=== PATIENT | female | born 1995 | race Caucasian/White ===

== ENCOUNTER 2023-07-02 11:24 | Emergency (ER) | payer BC ==
[~2023-07-02 11:24] MED LIST: Iopamidol 370 76% 100 ML VIAL ONE
[2023-07-02 12:41] LABS: #Basophils 0.07 10x3/uL (0.0-0.2); #Eosinphils 0.15 10x3/uL (0.0-0.5); #Monocytes 0.99 10x3/uL (0.0-1.1); %Basophils 0.5 % (0.0-2.0); %Lymphocytes 9.1 % (18.0-47.0); %Monocytes 6.4 % (0.0-10.0); %Neutrophils 81.8 % (40.0-75.0); Hematocrit 34.3 % (34.9-44.5); Hemoglobin 11.8 g/dL (12.0-15.5); Mean Corpuscular HGB CONC 34.4 g/dL (32.0-36.0); Mean Corpuscular Hemoglobin 31.6 pg (27.0-33.0); Mean Corpuscular Volume 91.7 fl (81.6-98.3); Platelet Count 199 10x3/uL (150-450); RBC Distribution Width 12.9 % (11.5-14.5); Red Blood Cell (RBC) Count 3.74 10x6/uL (3.90-5.03); White Blood Cell (WBC) Count 15.4 10x3/uL (3.5-10.5)
[2023-07-02 12:50] LABS: ALT (SGPT) 15 U/L (8-55); AST (SGOT) 23 U/L (5-34); Albumin 3.1 g/dL (3.5-5.0); Alkaline Phosphatase 63 U/L (40-110); Anion Gap 14 mmol/L (10-20); BUN (Urea Nitrogen) 9 mg/dL (7.0-18.7); Bilirubin, Total 0.5 mg/dL (0.2-1.2); Calc. Creatinine Clearance 0 mL/min (70-130); Calcium 9.1 mg/dL (7.8-10.44); Carbon Dioxide 17 mmol/L (22-29); Chloride 107 mmol/L (98-107); Estimated GFR 112; Globulin 3.8 g/dL (2.4-3.5); Glucose 93 mg/dL (70-105); Potassium 4.5 mmol/L (3.5-5.1); Protein, Total 6.9 g/dL (6.0-8.3); Sodium 133 mmol/L (136-145)
[2023-07-02 12:57] LABS: Magnesium 1.7 mg/dL (1.6-2.6)
[2023-07-02 13:11] LABS: Free T4 (Free Thyroxine) 0.7 ng/dL (0.70-1.48); Thyroid Stimulating Hormone 0.7064 uIU/mL (0.35-4.94)
[2023-07-02 13:24] LABS: Troponin I Less than 0.010 ng/mL (< 0.028)
[2023-07-02 13:57] LABS: Bilirubin Neg (Negative); Blood, Urine Negative (Negative); Glucose, Urine (Dipstick) Normal (Negative); Ketone, Urine Negative (Negative); Leukocyte 25 (Negative); Nitrite Negative (Negative); Protein, Urine (Dipstick) Negative (Neg-Trace); Specific Gravity, Urine 1.005 (1.005-1.030); Urobilinogen Normal mg/dL (Less than 2)
[2023-07-02 14:05] LABS: Clarity Clear (Clear)
[2023-07-02 14:07] LABS: Bacteria/HPF 1+ HPF (None Seen); CAUTI Indications for Culture Pregnancy; RBC/HPF None Seen HPF (0-3); WBC/HPF 0-3 HPF (0-3)
[2023-07-02 14:08] LABS: Urine Culture Reflex Yes Yes
== END 2023-07-02 15:49 | disposition home or self-care (01) ==
LOC: CSHERS 11:24
DX: O99.891 Other specified diseases and conditions complicating pregnancy (principal); R55 Syncope and collapse; R00.0 Tachycardia, unspecified; Z3A.26 26 weeks gestation of pregnancy
CPT/HCPCS: 71275; 80053; 81001; 83735; 83880; 84439; 84443; 84481; 84484; 85025; 85379; 87077; 87086; 93005; 96360; 96361; Q9967

== ENCOUNTER 2023-09-14 11:06 | Day surgery (SDC) | payer BC ==
[2023-09-14 11:26] VITALS: BMI 40.3
[2023-09-14] MEDS ORDERED: hydrALAZINE 20 MG/ML VIAL SLOW IVP PRN (12:12)
[2023-09-14 14:00] LABS: #Basophils 0.05 10x3/uL (0.0-0.2); #Eosinphils 0.03 10x3/uL (0.0-0.5); #Monocytes 0.74 10x3/uL (0.0-1.1); #Neutrophils 5.34 10x3/uL (1.5-8.4); %Basophils 0.7 % (0.0-2.0); %Eosinophils 0.4 % (0.0-6.0); %Lymphocytes 15.4 % (18.0-47.0); %Monocytes 10.1 % (0.0-10.0); %Neutrophils 72.7 % (40.0-75.0); Hematocrit 32.9 % (34.9-44.5); Hemoglobin 11.5 g/dL (12.0-15.5); Mean Corpuscular Hemoglobin 31.1 pg (27.0-33.0); Mean Corpuscular Volume 88.9 fL (81.6-98.3); Mean Platelet Volume 10.8 fL (7.4-10.4); Platelet Count 242 10x3/uL (150-450); RBC Distribution Width 13.5 % (11.5-14.5); White Blood Cell (WBC) Count 7.3 10x3/uL (3.5-10.5)
[2023-09-14 14:20] LABS: ALT (SGPT) 38 U/L (8-55); AST (SGOT) 47 U/L (5-34); Albumin 2.7 g/dL (3.5-5.0); Alkaline Phosphatase 111 U/L (40-110); Anion Gap 13 mmol/L (10-20); BUN (Urea Nitrogen) 6 mg/dL (7.0-18.7); Bilirubin, Total 0.6 mg/dL (0.2-1.2); Calc. Creatinine Clearance 183 mL/min (70-130); Calcium 8.7 mg/dL (7.8-10.44); Carbon Dioxide 21 mmol/L (22-29); Chloride 106 mmol/L (98-107); Estimated GFR 101; Globulin 3.5 g/dL (2.4-3.5); Glucose 76 mg/dL (70-105); Potassium 4.1 mmol/L (3.5-5.1); Protein, Total 6.2 g/dL (6.0-8.3); Sodium 136 mmol/L (136-145)
[2023-09-14] MEDS: Ursodiol 300 MG CAP PO ONE (15:52)
== END 2023-09-14 16:06 | disposition home or self-care (01) ==
LOC: CSHLD/OP 11:06
PROVIDERS: ATTEND Obstetrics & Gynecology
DX: O36.8130 Decreased fetal movements, third trimester, not applicable or unspecified (principal); O26.893 Other specified pregnancy related conditions, third trimester; L29.9 Pruritus, unspecified; O99.343 Other mental disorders complicating pregnancy, third trimester; F41.9 Anxiety disorder, unspecified; Z79.899 Other long term (current) drug therapy; Z79.82 Long term (current) use of aspirin; Z88.8 Allergy status to other drugs, medicaments and biological substances; Z98.890 Other specified postprocedural states; Z3A.36 36 weeks gestation of pregnancy
CPT/HCPCS: 76819; 80053; 82239; 85025